=== PATIENT | female | born 1995 | race Caucasian/White ===

== ENCOUNTER 2022-11-09 15:36 | Emergency (ER) | payer BC, OTHER ==
[2022-11-09 16:09] VITALS: BP 113/61; PULSE 67; RESP 20; TEMP 98.4; BMI 21.2
== END 2022-11-09 17:40 | disposition home or self-care (01) ==
LOC: FER 15:36
DX: S93.402A Sprain of unspecified ligament of left ankle, initial encounter (principal); W10.8XXA Fall (on) (from) other stairs and steps, initial encounter; Y93.01 Activity, walking, marching and hiking
CPT/HCPCS: 73590-TC-LT-FY; 73610-TC-LT-FY; 73630-TC-LT; 99283-25